=== PATIENT | male | born 1990 | race Two or more races ===

== ENCOUNTER → 2024-11-03 | Outpatient (CLI) | payer MEDICAID, SELFPAY ==
--- NOTE | 2024-11-03 08:23 | XR_ITS ---
Examination: PA lateral chest 2 views Technique whereby the lateral chest 2 views Exam date and time: November 03, 2024 0834 hours INDICATIONS: Chest pain back pain beginning 3 days ago, coughing beginning 8 days ago FINDINGS: Normal heart size No pneumonia or pulmonary edema The osseous structures are intact Minimal atelectasis in the lingular segment IMPRESSION: No pneumonia or pulmonary edema
== END | disposition home or self-care (01) ==
LOC: CDIM 08:08
PROVIDERS: PCP Student in an Organized Health Care Education/Training Program; Referring Provider Physician Assistant; Visit Provider Physician Assistant
DX: R07.9 Chest pain, unspecified (principal); R05.9 Cough, unspecified
CPT/HCPCS: 71046